=== PATIENT | male | born 1950 | race Caucasian/White ===

== ENCOUNTER → 2022-12-22 | Day surgery (SDC) | payer OTHER ==
[~2022-12-22] VITALS: Ht 172.7 cm; Wt 105.7 kg
[~2022-12-22] MED LIST: ATORVASTATIN CA10 MG PO; TOPROL XL25 M1 PO; XANAX0.25 MG PO
== END | disposition home or self-care (01) ==
LOC: ADM 12-19 15:15 → CIR.AMB 05:13
PROVIDERS: ATTEND Surgery
DX: C50.822 Malignant neoplasm of overlapping sites of left male breast (principal); R59.0 Localized enlarged lymph nodes; I10 Essential (primary) hypertension; Z20.822 Contact with and (suspected) exposure to COVID-19; D68.9 Coagulation defect, unspecified; E78.2 Mixed hyperlipidemia; E11.01 Type 2 diabetes mellitus with hyperosmolarity with coma; E04.1 Nontoxic single thyroid nodule
CPT/HCPCS: 19303; 38525; 38792; 19281; 19285; A9541; L8699

== ENCOUNTER 2022-12-24 15:31 | Emergency (ER) | payer OTHER ==
[~2022-12-24] VITALS: Ht 172.7 cm; Wt 101.2 kg
== END 2022-12-24 22:47 | disposition home or self-care (01) ==
LOC: ER 15:31
DX: R55 Syncope and collapse (principal); C50.922 Malignant neoplasm of unspecified site of left male breast; I10 Essential (primary) hypertension